=== PATIENT | male | born 1980 | race Two or more races ===

== ENCOUNTER 2021-12-06 07:32 | Emergency (ER) | payer OTHER ==
[2021-12-06 07:39] VITALS: BMI 24.3
[2021-12-06] MEDS ORDERED: FAMOTIDINE 20 MG/50 ML IVPB 20 MG/50 ML MG IVPB ONE ×2 (08:03→08:09)
[2021-12-06] MEDS ORDERED: methylPREDNISolone NA SUCC 125 MG/2 ML VIAL IVPUSH ONE (08:05)
[2021-12-06] MEDS ORDERED: methylPREDNISolone NA SUCC 125 MG/2 ML VIAL ONE (08:09)
[2021-12-06] MEDS ORDERED: LORATADINE 10 MG TABLET PO ONE (09:44)
[2021-12-06] MEDS ORDERED: LORATADINE 10 MG TABLET ONE (09:50)
[2021-12-06 11:29] VITALS: BP 118/72; PULSE 72; TEMP 97.8
== END 2021-12-06 11:29 | disposition home or self-care (01) ==
LOC: JER 07:32
PROC: 3E033GC Introduction of Other Therapeutic Substance into Peripheral Vein, Percutaneous Approach (ICD-10-PCS; principal; 2021-12-06)
DX: T78.40XA Allergy, unspecified, initial encounter (principal)
CPT/HCPCS: 99284-25

== ENCOUNTER 2021-12-08 03:23 | Observation (INO) | payer OTHER ==
[2021-12-08 03:42] VITALS: BMI 24.3
[2021-12-08] MEDS ORDERED: ONDANSETRON 4 MG/2 ML VIAL IVPUSH ONE (03:56)
[2021-12-08] MEDS ORDERED: FAMOTIDINE 20 MG/50 ML IVPB 20 MG/50 ML MG IVPB ONE ×3 (03:56→06:17)
[2021-12-08] MEDS ORDERED: ACETAMINOPHEN 1000 MG/100 ML BAG IVPB ONE (03:56)
[2021-12-08] MEDS ORDERED: ACETAMINOPHEN INJECTION 100 ML IVPB ONE (04:01)
[2021-12-08] MEDS ORDERED: ONDANSETRON 4 MG/2 ML VIAL ONE (04:01)
[2021-12-08 05:00] LABS: BASO % 0.1 % (0-2.0); EOS % 0.1 % (0-4.5); HEMATOCRIT 44.6 % (35.4-49); HEMOGLOBIN 14.8 GM/dL (11.7-16.9); LYMPH % 20.2 % (8-40); MCH 30.4 pg (25.7-33.7); MCHC 33.2 g/dl (32.0-35.9); MEAN CELL VOLUME 91.4 fl (80-96); MEAN PLT VOLUME 7.6 fl (7.5-11.1); MONO % 4.2 % (3.8-10.2); NEUT % 75.4 % (42.8-82.8); PLATELET COUNT 296 10^3/uL (134-434); RBC 4.88 M/mm3 (4.00-5.60); RDW 14.2 % (11.9-15.9); WHITE BLOOD COUNT 11.5 K/mm3 (4.0-10.0)
[2021-12-08 05:22] LABS: CHLORIDE 105 mmol/L (98-107); SODIUM 140 mmol/L (136-145)
[2021-12-08 05:24] LABS: CALCIUM 8.9 mg/dL (8.5-10.1); GLUCOSE,RANDOM 86 mg/dL (74-106)
[2021-12-08 05:25] LABS: ALBUMIN 4.2 g/dl (3.4-5.0); ANION GAP 6 MMOL/L (8-16); BLOOD UREA NITROGEN 13.6 mg/dL (7-18); CO2 28 mmol/L (21-32)
[2021-12-08 05:28] LABS: CREATININE 1.1 mg/dL (0.55-1.3); SGOT/AST 21 U/L (15-37); SGPT/ALT 47 U/L (13-61)
[2021-12-08 05:29] LABS: BILIRUBIN,TOTAL 0.6 mg/dL (0.2-1); TOT PROT 7.2 g/dl (6.4-8.2)
[2021-12-08 05:30] LABS: ALK PHOS 80 U/L (45-117)
[2021-12-08] MEDS ORDERED: SUCRALFATE 1 GM/10 ML UNIT DOSE CUPS PO ONE (05:36)
[2021-12-08] MEDS ORDERED: SUCRALFATE 1 GM TABLET (FP) ONE (05:48)
[2021-12-08] MEDS ORDERED: methylPREDNISolone NA SUCC 125 MG/2 ML VIAL IVPB ONE (06:17)
[2021-12-08] MEDS ORDERED: methylPREDNISolone NA SUCC 125 MG/2 ML VIAL ONE (06:44)
[2021-12-08] MEDS ORDERED: MAG HYDROX/AL HYDROX/SIMETH 30 ML UNIT-DOSE CUP ONE (06:59)
[2021-12-08] MEDS ORDERED: MAG HYDROX/AL HYDROX/SIMETH 30 ML UNIT-DOSE CUP PO ONE (06:59)
[2021-12-08 07:55] VITALS: TEMP 98.2
[2021-12-08 12:52] VITALS: BP 114/73; PULSE 66
== END 2021-12-08 13:13 | disposition home or self-care (01) ==
LOC: JER 03:23 → JERBED 06:17
PROVIDERS: ADMIT Family Medicine; ATTEND Family Medicine
PROC: 3E033NZ Introduction of Analgesics, Hypnotics, Sedatives into Peripheral Vein, Percutaneous Approach (ICD-10-PCS; principal; 2021-12-08)
PROC: 3E033GC Introduction of Other Therapeutic Substance into Peripheral Vein, Percutaneous Approach (ICD-10-PCS; 2021-12-08)
DX: T78.40XD Allergy, unspecified, subsequent encounter (principal); R21 Rash and other nonspecific skin eruption; R11.0 Nausea; R07.89 Other chest pain; L29.9 Pruritus, unspecified; F17.210 Nicotine dependence, cigarettes, uncomplicated
CPT/HCPCS: 36415; 71046-TC-FY; 80053; 82550; 82553; 83690; 84484; 85025; 93005; 93010; 96365; 96375; 96376; 99285-25; C9803; G0378; U0003; U0005

== ENCOUNTER 2024-11-13 04:33 | Day surgery (SDC) | payer OTHER ==
[2024-11-12 11:48] VITALS: BMI 24.3
[2024-11-13 11:36] VITALS: TEMP 98.2
[2024-11-13 11:52] VITALS: RESP 18
[2024-11-13 12:11] VITALS: BP 111/69; PULSE 70
== END 2024-11-13 12:27 | disposition home or self-care (01) ==
LOC: JASU-ENDO 04:33
PROVIDERS: ATTEND Internal Medicine Gastroenterology
PROC: 0DBN8ZX Excision of Sigmoid Colon, Via Natural or Artificial Opening Endoscopic, Diagnostic (ICD-10-PCS; 2024-11-13)
PROC: 0DBP8ZX Excision of Rectum, Via Natural or Artificial Opening Endoscopic, Diagnostic (ICD-10-PCS; principal; 2024-11-13 10:45)
DX: Z12.11 Encounter for screening for malignant neoplasm of colon (principal); D12.8 Benign neoplasm of rectum; D12.5 Benign neoplasm of sigmoid colon; K64.8 Other hemorrhoids
CPT/HCPCS: 88305-TC